=== PATIENT | female | born 1990 | race Caucasian/White ===

== ENCOUNTER 2017-01-19 14:19 | Emergency (ER) | payer BC, OTHER ==
--- NOTE | 2017-01-19 15:16 | RADIOLOGY REPORT ---
HISTORY: Shortness of breath. COMPARISON: None. TECHNIQUE: Chest PA and lateral. FINDINGS: The lungs are clear. Cardiac silhouette is normal in size. Pulmonary vasculature is within normal limits. There are no pleural effusions. IMPRESSION: No acute cardiopulmonary disease. Final Electronic Signature: This report was electronically signed by Julien Santana MD, FACR on 3:14 PM. chris /
--- NOTE | 2017-01-19 16:45 | ER PHYSICIAN DOCUMENTATION ---
Physician Documentation [facility] Name:Suzette Diego Age:26 yrs Sex:Female :1990 Arrival Date:01/19/2017 Time:14:19 Bed4 Private MD: Faraz Riley Disposition: 01/21 05:29 Chart complete. tl1 Disposition: 01/19/17 16:31 Discharged to Home/Self Care. Impression: Viral Upper Respiratory Infection (URI). - Condition is Good. - Discharge Instructions: VIRAL URI Adult - URI, Viral, No Abx (Adult). - Prescriptions for Tessalon Perles 100 mg Oral Capsule - take 1 capsule by ORAL route every 8 hours As needed; 15 capsule. Tussionex Pennkinetic ER 8- 10 mg/5 mL Oral Suspension, Sust. Release 12 hr - take 5 milliliter by ORAL route every 12 hours As needed; 120 milliliter. - Medical Reconciliation form form. - Follow up: Private Physician; When: 4- 6 days; Reason: Recheck today's complaints, Continuance of care. - Problem is new. - Symptoms have improved. HPI: 01/09 14:45 This 26 yrs old Female presents to ER via Private Vehicle with complaints of tl1 Cough. 14:45 The patient or guardian reports cough, that is intermittent, described as moderate, tl1 with productive sputum, that is white. Onset: The symptom(s)/episode began/occurred gradually, 2 day(s) ago. Severity of symptoms: At their worst the symptoms were moderate, in the emergency department the symptoms are unchanged. Modifying factors: The symptoms are alleviated by nothing, the symptoms are aggravated by nothing. Associated signs and symptoms: Pertinent positives: rhinorrhea, sore throat, Pertinent negatives: fever. The patient has experienced similar episodes in the past, a few times. The patient has not recently seen a physician. Historical: - Allergies: PENICILLINS; Clindamycin; - Home Meds: 1. INSULIN PUMP 2. Synthroid Oral - PMHx: Diabetes - IDDM; HYPOTHYROIDISM; - PSHx: HAND; - Tetanus: < 10 years. - Ebola Screening: : Patient denies travel to an Ebola-affected area in the 21 days before illness onset. No symptoms or risks identified at this time. . - Immunization history: Flu Vaccine >1 year. - Social history: Smoking status: Patient states was never smoker of tobacco. ROS: 14:45 Respiratory: Positive for cough, Negative for dyspnea on exertion, hemoptysis, tl1 orthopnea, pleurisy, shortness of breath, wheezing. 14:45 All other systems are negative. Exam: 14:45 Constitutional: This is a well developed, well nourished patient who is awake, alert, tl1 and in no acute distress. Head/Face: Normocephalic, atraumatic. ENT: Nares patent. No nasal discharge, no septal abnormalities noted. Tympanic membranes are normal and external auditory canals are clear. Oropharynx with no redness, swelling, or masses, exudates, or evidence of obstruction, uvula midline. Mucous membranes moist. 14:45 Neck: Trachea midline, no thyromegaly or masses palpated, and no cervical tl1 lymphadenopathy. Supple, full range of motion without nuchal rigidity, or vertebral point tenderness. No Meningismus. 14:45 Cardiovascular: Regular rate and rhythm with a normal S1 and S2. No gallops, murmurs, or rubs. Normal PMI, no JVD. No pulse deficits. 14:45 Respiratory: the patient does not display signs of respiratory distress, Respirations: normal, Breath sounds: are normal, no decreased breath sounds, no rales, rhonchi, no stridor, no wheezing. 14:45 Abdomen/GI: Palpation: abdomen is soft and non-tender. 14:45 Neuro: Exam negative for acute changes, Orientation: is normal. Vital Signs: 01/19 14:25 BP 125 / 70 RA Sitting (auto/reg); Pulse 67 LA; Resp 16 S; Temp 98.3(O); Pulse Ox 96% em3 on R/A; Weight 72.57 kg (R); Height 5 ft. 7 in. (170.18 cm) (R); Pain 0/10; 16:28 BP 117 / 67; Pulse 70; Resp 16; Pulse Ox 97% on R/A; Pain 0/10; tg 14:25 Body Mass Index 25.06 (72.57 kg, 170.18 cm) em3 MDM: 14:45 Patient medically screened. tl1 16:00 Differential Diagnosis: Bronchitis Influenza Upper Respiratory Infection Viral Syndrome tl1 Pneumonia. Data reviewed: vital signs, nurses notes, radiologic studies, plain films, and as a result, I will discharge patient. Counseling: I had a detailed discussion with the patient and/or guardian regarding: the historical points, exam findings, and any diagnostic results supporting the discharge/admit diagnosis, radiology results, the need for outpatient follow up, to return to the emergency department if symptoms worsen or persist or if there are any questions or concerns that arise at home. ED course: Mild to moderate persistent cough, w/o tachypnea or hypoxia. CXR is normal. The cough is most bothersome, and there is no evidence on exam for bronchospasm. I recommended a trial of cough suppressants and told her to expect 2-3 weeks of symptoms. She is to return for fever, chest pain, dyspnea or other worsening, but I told her to expect that symptoms may progress a bit for the next 2=3 days before she starts slowly turning around.. 01/19 15:19 Order name: [id number]; Complete Time: 05:07 EDMS 01/21 05:07 Interpretation: Normal per my read, and the radiologist's. tl1 Dispensed Medications: No medications were administered Signatures: Bc Casarez, RN RN Xenia Vasquez RN RN Faraz Luna MD MD tl1
--- NOTE | 2017-01-19 16:45 | ER NURSING DOCUMENTATION ---
Nurse's Notes [facility] Name:Suzette Diego Age:26 yrs Sex:Female :1990 Arrival Date:01/19/2017 Time:14:19 Bed4 Private MD: Diagnosis:Viral Upper Respiratory Infection (URI) Presentation: 01/19 14:22 Acuity: ERYN 3 lc 14:27 Presenting complaint: Patient states: FOR 2 DAYS C/O COUGH AND SOB WITH SL CHILLS lc TODAY. TRIED MUCINEX PO. NO ST, N/V/D. Transition of care: patient was not received from another setting of care. Notified ED Physician of patient's arrival and CC. 14:27 Method Of Arrival: Private Vehicle Triage Assessment: 14:30 General: Appears comfortable, Behavior is cooperative, pleasant. Pain: Denies pain. lc Neuro: Level of Consciousness is awake, alert, Oriented to person, place, time, event. Respiratory: Airway is patent Respiratory effort is even, unlabored, Respiratory pattern is regular, symmetrical, Breath sounds are clear bilaterally. Reports shortness of breath on exertion cough that is non-productive, Onset: The symptoms/episode began/occurred yesterday, the patient has mild shortness of breath. Derm: Skin is pink, warm & dry. Historical: - Allergies: PENICILLINS; Clindamycin; - Home Meds: 1. INSULIN PUMP 2. Synthroid Oral - PMHx: Diabetes - IDDM; HYPOTHYROIDISM; - PSHx: HAND; - Tetanus: < 10 years. - Ebola Screening: : Patient denies travel to an Ebola-affected area in the 21 days before illness onset. No symptoms or risks identified at this time. . - Immunization history: Flu Vaccine >1 year. - Social history: Smoking status: Patient states was never smoker of tobacco. Screenin:32 Infectious Disease Risk None. Abuse screen: Denies threats or abuse. Denies injuries lc from another. Nutritional screening: No deficits noted. Assessment: 14:32 See Triage Assessment done by same RN. Vital Signs: 14:25 BP 125 / 70 RA Sitting (auto/reg); Pulse 67 LA; Resp 16 S; Temp 98.3(O); Pulse Ox 96% em3 on R/A; Weight 72.57 kg (R); Height 5 ft. 7 in. (170.18 cm) (R); Pain 0/10; 16:28 BP 117 / 67; Pulse 70; Resp 16; Pulse Ox 97% on R/A; Pain 0/10; tg 14:25 Body Mass Index 25.06 (72.57 kg, 170.18 cm) em3 ED Course: 14:21 Patient arrived in ED. arc 14:22 Xenia Vasquez, RN is Primary Nurse. 14:22 Triage completed. 14:26 Valuables Remains with patient Patient has correct armband on for positive em3 identification. Placed in gown. Bed in low position. Call light in reach. Side rails up X 1. 14:45 Faraz Fontenot MD is Attending Physician. tl1 15:02 Patient moved to radiology. pm1 15:09 Patient moved back from radiology. pm1 Administered Medications: No medications were administered Outcome: 16:31 Discharge ordered by . tl1 16:44 Discharged to home ambulatory. tg 16:44 Condition: stable 16:44 Discharge Assessment: Patient awake, alert and oriented x 3. No cognitive and/or functional deficits noted. Patient verbalized understanding of disposition instructions. 16:44 Instructed on discharge instructions, follow up and referral plans. medication usage, Prescriptions given X 2. 16:44 Patient left the ED. tg 07 12:22 Discharge F/U Call: Unable to reach: left voicemail: Signatures: Bc Casarez RN RN Xenia Vasquez, RN RN Evelio Thomas pm1 Lm Christian em3 Faraz Fontenot MD MD tl1 Valencia Jim, Reg Reg Carmen Gallagher
== END 2017-01-19 16:45 | disposition home or self-care (01) ==
LOC: ER 14:19
DX: J06.9 Acute upper respiratory infection, unspecified (principal)
CPT/HCPCS: 71020; 99283